=== PATIENT | female | born 1980 | race Caucasian/White ===

== ENCOUNTER 2020-06-06 08:47 | Emergency (ER) | payer OTHER, SELFPAY ==
[2020-06-06 09:01] VITALS: BMI 34.7
[2020-06-06 09:04] VITALS: BP 117/76; PULSE 72; RESP 16; TEMP 36.9; O2SAT 98
--- NOTE | 2020-06-06 09:19 | XR_ITS ---
WS: [id number] RIGHT SHOULDER: 3 VIEW(S) TECHNIQUE: Internal and external rotation with Y view. HISTORY: trauma/fall COMPARISON: None available. No fracture or dislocation or soft tissue abnormality. Glenohumeral and AC joints are unremarkable. XR/XR shoulder RT min 2V* [id number] IMPRESSION: Normal RIGHT shoulder.
--- NOTE | 2020-06-06 09:20 | ED_ITS ---
HPI - Fall General: Chief Complaint: Fall Stated Complaint: FALL/[facility] Time Seen by Provider: 06/06/20 08:49 Source: patient Mode of arrival: ambulatory Limitations: no limitations History of Present Illness: HPI Narrative: Patient is a 40-year-old female who presents to ED today after a trip and fall incident that occurred. Patient states she is an [facility] employee and fell due to a hole near the sidewalk. This is a workers comp visit. Patient states when she fell she landed with her right arm outstretched and jammed her right shoulder. She has noticed popping since the event. She has no other complaints at this time other than some mild soreness. She has been ambulatory since the event. She denies striking her head, LOC, neck or back pain. Associated symptoms-after fall: Denies abdominal pain, chest pain, headache(s) or neck pain Review of Systems Eyes: Denies: change in vision, blurry vision, floaters or seeing flashes Card: Denies: chest pain Resp: Denies: dyspnea GI: Denies: abdominal pain Musc: Reports: joint pain (R shoulder); Denies: neck pain, back pain, extremity pain, extremity swelling or joint swelling Neuro: Denies: headache(s), numbness in extremities, weakness in extremities or sensory changes [facility] ED Female Reproductive History: Date of last menstrual period: 05/28/20 Physical Exam Const: COMMON NORMALS: no acute distress, average body habitus, patient oriented x3, no limitations, healthy appearing, alert and well nourished HENMT: COMMON NORMALS: normocephalic and atraumatic HEAD & SCALP: normocephalic and atraumatic Neck/C-Spine: COMMON NORMALS: full ROM GENERAL: Yes normal visual inspection CERVICAL SPINE: No pain with cervical ROM, No Cervical spine tenderness and No Paracervical muscle tenderness Chest: COMMONS NORMALS: normal inspection of the chest and normal palpation of entire chest wall Back/Pelvis: COMMON NORMALS: thoracic and lumbar spine normal to inspection, no thoracic nor lumbar tenderness and thoraco-lumbar ROM normal Extremity: GENERAL: Yes normal exam except as noted RIGHT UPPER EXTREMITY: Yes shoulder joint (TTP anterior glenohumeral/AC joint; full but painful ROM) Right shoulder: Yes Right shoulder joint neurovascular exam (normal) Neuro: COMMON NORMALS: patient oriented x3, moves all extremities, no focal motor deficits, no sensory deficits noted and gait normal SENSORIUM/ORIENTATION: Yes alert Skin: COMMON NORMALS: no rashes or lesions noted GENERAL SKIN EXAM: no rashes or lesions noted Course Vital Signs: Vital signs: Vital Signs Temperature 98.4 F 06/06/20 09:04 Pulse Rate 72 06/06/20 09:04 Respiratory Rate 16 06/06/20 09:04 Blood Pressure 117/76 06/06/20 09:04 Pulse Oximetry 98 06/06/20 09:04 MDM - Fall MDM Narrative: Medical decision making narrative: pt will be sent for drug/etoh screening and will followup with workers comp Imaging Data^: XR R shoulder: Radiologist's impression: [place] [address] XRay Report Signed Patient: Delmis Ahumada Unit #: [id number] : 1980 Age/Sex: 40 / F ADM Date: 06/06/20 Loc: ER Room/Bed: Attending Dr: Ordering Provider/Ordering MD: Mary Mcnair Date of Service: 06/06/20 Procedure(s): XR shoulder RT min 2V* [id number] Accession Number(s): [id number] Report Number: [id number] WS: [id number] RIGHT SHOULDER: 3 VIEW(S) TECHNIQUE: Internal and external rotation with Y view. HISTORY: trauma/fall COMPARISON: None available. No fracture or dislocation or soft tissue abnormality. Glenohumeral and AC joints are unremarkable. XR/XR shoulder RT min 2V* [id number] IMPRESSION: Normal RIGHT shoulder. Dictated By: Aury Ivy DO Signed By: Aury Ivy DO Signed Date/Time: 06/06/20945 DD/ 1 Discharge Plan Discharge Patient Disposition: Home Clinical Impression: Fall on same level from tripping Injury of right shoulder Qualifiers: Encounter type: initial encounter Qualified Code(s): S49.91XA - Unspecified injury of right shoulder and upper arm, initial encounter Condition: Stable Prescriptions: No Action Richelle 24 Hour 1 tab PO DAILY RF: 0 famotidine 20 mg Tablet 20 mg PO DAILY RF: 0 Discharge Orders: Discharge Order (Routine); Ordered 06/06/20 Ordered By: Mary Mcnair Referrals: Twin Le MD [Primary Care Provider] - Patient Instructions: Shoulder Sprain (ED) Activity Restrictions/Additional Instructions: As discussed head straight to the [facility]/occupational facility for drug and alcohol screening. You have been given discharge instructions on when/where to follow-up with Worker's Comp. Coding Level of Care Code ED Medicare Specialist for Edwin Tsai
[2020-06-06 10:18] VITALS: BP 115/72; PULSE 69; RESP 18; O2SAT 98
== END 2020-06-06 10:30 | disposition home or self-care (01) ==
PROVIDERS: Emergency Provider Physician Assistant; Family Provider Family Medicine; PCP Family Medicine
DX: S49.91XA Unspecified injury of right shoulder and upper arm, initial encounter (principal); W01.0XXA Fall on same level from slipping, tripping and stumbling without subsequent striking against object, initial encounter
CPT/HCPCS: 12345; 73030; 99281; 99283

== ENCOUNTER 2020-07-04 15:03 | Outpatient (CLI) | payer OTHER, SELFPAY ==
--- NOTE | 2020-07-04 15:13 | MR_ITS ---
WS: [id number] MRI RIGHT SHOULDER NONCONTRAST TECHNIQUE: Sagittal T2, coronal T1, T2 and proton density imaging. Axial gradient PDE imaging. CLINICAL INFORMATION: RIGHT SHOULDER PAIN COMPARISON: None. FINDINGS: Normal AC joint. Small amount of edema at the AC joint. Minimal downsloping of the acromion. Slight s ubacromial spurring. Distal supraspinatus is normal. Normal infraspinatus. Normal teres minor and sub scapularis. No full-thickness rotator cuff tears. Normal biceps tendon in the bicipital groove. Normal biceps labral anchor. Normal glenoid labrum. Bon y glenoid is normal in appearance. Normal visualized soft tissues. MR/MR shoulder RT wo con* [id number] IMPRESSION: 1. Mild degenerative arthritis at the AC joint with mild edema. 2. Normal rotator cuff. No evidence of rotator cuff tear. 3. Normal biceps tendon in the bicipital groove. 4. No other significant findings.
== END 2020-07-04 15:04 | disposition home or self-care (01) ==
LOC: RADWPI 15:08
PROVIDERS: Family Provider Family Medicine; PCP Family Medicine; Visit Provider Family Medicine
DX: M19.011 Primary osteoarthritis, right shoulder (principal); R60.0 Localized edema
CPT/HCPCS: 73221

== ENCOUNTER 2020-07-13 09:27 | Outpatient (RCR) | payer OTHER, SELFPAY | END 2020-07-18 23:59 | disposition home or self-care (01) | LOC: SPT 09:27 | PROVIDERS: PCP Family Medicine; Referring Provider Family Medicine; Visit Provider Family Medicine | DX: S46.911D Strain of unspecified muscle, fascia and tendon at shoulder and upper arm level, right arm, subsequent encounter (principal); X58.XXXD Exposure to other specified factors, subsequent encounter | CPT/HCPCS: 97035; 97110; 97140; 97161 ==

== ENCOUNTER 2020-07-19 06:00 | Outpatient (RCR) | payer OTHER, SELFPAY | END 2020-08-18 23:59 | disposition home or self-care (01) | LOC: SPT 06:00 | PROVIDERS: PCP Family Medicine; Referring Provider Family Medicine; Visit Provider Family Medicine | DX: S46.911D Strain of unspecified muscle, fascia and tendon at shoulder and upper arm level, right arm, subsequent encounter (principal); X58.XXXD Exposure to other specified factors, subsequent encounter | CPT/HCPCS: 97110 ==

== ENCOUNTER 2020-11-22 08:09 | Outpatient (CLI) | payer OTHER, SELFPAY ==
--- NOTE | 2020-11-22 08:45 | MR_ITS ---
WS: [id number] MRI CERVICAL SPINE NONCONTRAST HISTORY: M54.2 - Cervicalgia COMPARISON: None available. Technique: Multiplanar, multisequence noncontrast imaging of the cervical spine. Mild straightening of the normal cervical lordosis. No marrow edema or fracture. Signal within the cervical cord is normal. Visualized posterior fossa is unremarkable. Craniocervical junction, C1 and C2 relationship, odontoid process and soft tissues are normal. C2-C3: Normal. C3-C4: Normal. C4-C5: Normal. C5-C6: Shallow central disc protrusion and small foraminal osteophytes. Very mild encroachment upon t he ventral thecal sac without significant stenosis. C6-C7: Tiny central disc protrusion and mild osteophytic ridging. Very mild encroachment upon the aida tral thecal sac. C7-T1: Normal. Paraspinal soft tissue are normal. MR/MR cervical spin wo con* [id number] IMPRESSION: 1. No significant disc protrusions or stenosis. 2. Shallow central disc protrusions and foraminal osteophytes at C5-6 and C6-7 . Very minimal encroachment upon the ventral thecal sac but no significant sten osis.
== END 2020-11-22 08:10 | disposition home or self-care (01) ==
PROVIDERS: PCP Family Medicine; Visit Provider Orthopaedic Surgery
DX: M50.223 Other cervical disc displacement at C6-C7 level (principal)
CPT/HCPCS: 72141

== ENCOUNTER → 2020-12-31 10:11 | Outpatient (BNVA) | payer OTHER, SELFPAY | PROVIDERS: PCP Family Medicine; Visit Provider Specialist | DX: R20.0 Anesthesia of skin (principal); R20.2 Paresthesia of skin; M54.2 Cervicalgia; S46.211A Strain of muscle, fascia and tendon of other parts of biceps, right arm, initial encounter; Y93.9 Activity, unspecified | CPT/HCPCS: 95886; 95908 ==

== ENCOUNTER 2021-07-23 11:55 | Outpatient (CLI) | payer OTHER, SELFPAY ==
[2021-07-23 13:03] VITALS: BP 110/75; PULSE 48; RESP 18; TEMP 36.8; O2SAT 98; BMI 24.8
[2021-07-23 13:26] VITALS: BP 106/67; PULSE 41; RESP 18; O2SAT 97
[2021-07-23 14:24] VITALS: BP 107/65; PULSE 48; RESP 18; TEMP 36.5; O2SAT 99
== END 2021-07-23 11:56 | disposition home or self-care (01) ==
LOC: OPS 11:57
PROVIDERS: PCP Family Medicine; Visit Provider Family Medicine
DX: U07.1 COVID-19 (principal)
CPT/HCPCS: 96365

== ENCOUNTER 2021-08-27 09:31 | Outpatient (CLI) | payer OTHER, SELFPAY ==
--- NOTE | 2021-08-27 09:39 | MM_ITS ---
WS: [id number] BILATERAL DIGITAL DIAGNOSTIC MAMMOGRAM MAMMOGRAPHY WITH CAD CLINICAL INFORMATION: LT BREAST LUMP 12 OCLOCK HISTORY: Left breast lump. Left pain and soreness. COMPARISON: May 09, 2010 TECHNIQUE: Bilateral CC, MLO, and ML views. FINDINGS: Scattered fibroglandular densities bilaterally. Palpable marker left breast. No definite discrete und erlying parenchymal abnormalities. Ultrasound is pending. Right breast is unremarkable. ULTRASOUND BREAST LEFT TECHNIQUE: Ultrasound left breast focused area of concern. CLINICAL INFORMATION: LT BREAST LUMP 12 OCLOCK COMPARISON: None. FINDINGS: Ultrasound left breast at the 11:00 position 3 cm from the nipple. Dense underlying parenchymal tissu e. No suspicious underlying abnormalities. No cystic or solid lesions. No lesions to target for biops y. Recommend annual screening mammography MM/[place] [id number] IMPRESSION: BI-RADS: 2-Benign FOLLOW UP: 1 Year Follow-up Recommend return to annual screening mammography.
== END 2021-08-27 09:32 | disposition home or self-care (01) ==
LOC: RADSHAW 09:35
PROVIDERS: PCP Family Medicine; Visit Provider Nurse Practitioner Family
DX: N63.25 Unspecified lump in the left breast, overlapping quadrants (principal); N64.4 Mastodynia
CPT/HCPCS: 76642; 77066

== ENCOUNTER 2022-09-24 14:19 | Outpatient (CLI) | payer OTHER, SELFPAY ==
--- NOTE | 2022-09-24 14:24 | MM_ITS ---
WS: [id number] BILATERAL 3D TOMOSYNTHESIS DIGITAL SCREENING MAMMOGRAPHY WITH CAD CLINICAL INFORMATION: SCREENING HISTORY: Screening mammogram. No current complaints. COMPARISON: August 27, 2021 TECHNIQUE: Bilateral CC and MLO views. FINDINGS: The breasts are composed of heterogeneous fibroglandular density tissue, which can limit the detectio n of small underlying mass lesions. Increasing area of architectural distortion upper outer quadrant LEFT breast anterior depth. Recommend further evaluation with diagnostic mammography spot compression views and ultrasound. RIGHT breast is unremarkable and unchanged. IMPRESSION: MM/[place] [id number] BI-RADS: 0-Incomplete: Need additional imaging evaluation FOLLOW UP: Need Additional Imaging Recommend LEFT breast diagnostic mammography with spot compression views and ul trasound in further evaluation.
== END 2022-09-24 14:20 | disposition home or self-care (01) ==
LOC: RAD 14:20
PROVIDERS: PCP Family Medicine; Visit Provider Family Medicine
DX: Z12.31 Encounter for screening mammogram for malignant neoplasm of breast (principal)
CPT/HCPCS: 77063; 77067

== ENCOUNTER 2022-10-24 09:53 | Outpatient (CLI) | payer OTHER, SELFPAY ==
--- NOTE | 2022-10-24 10:07 | MM_ITS ---
WS: [id number] LEFT 3D TOMOSYNTHESIS DIGITAL MAMMOGRAPHY WITH CAD CLINICAL INFORMATION: ABNORMAL MAMMO HISTORY: Additional views COMPARISON: September 24, 2022 TECHNIQUE: 3 views of the left breast were obtained. FINDINGS: The left breast is composed of heterogeneous fibroglandular density tissue, which can limit the detec tion of small underlying mass lesions. Stable area of architectural distortion upper outer LEFT breas t. There may be some associated mineralization in this area. Ultrasound described below. ULTRASOUND BREAST LEFT TECHNIQUE: Ultrasound left breast focused area of concern. CLINICAL INFORMATION: ABNORMAL MAMMO COMPARISON: None. FINDINGS: Ultrasound upper outer quadrant LEFT breast. Normal-appearing 7 mm lymph node with normal fatty hilum at the 2:00 position 4 cm from the nipple. Normal underlying parenchymal tissue in the upper outer q uadrant. No suspicious lesions. No cystic or solid lesions to target for biopsy. Recommend return to annual screening mammography. MM/[place] [id number] IMPRESSION: BI-RADS: 2-Benign FOLLOW UP: 1 Year Follow-up Recommend return to annual screening mammography.
== END 2022-10-24 09:54 | disposition home or self-care (01) ==
LOC: RAD 09:54
PROVIDERS: PCP Family Medicine; Visit Provider Family Medicine
DX: R92.8 Other abnormal and inconclusive findings on diagnostic imaging of breast (principal)
CPT/HCPCS: 76642; 77061; G0279

== ENCOUNTER 2023-11-13 07:54 | Outpatient (CLI) | payer OTHER, SELFPAY ==
--- NOTE | 2023-11-13 08:02 | MM_ITS ---
WS: [id number] BILATERAL SCREENING DIGITAL TOMOSYNTHESIS MAMMOGRAM WITH CAD HISTORY: SCREEN COMPARISON: 10/24/2022 and 09/24/2022 Bilateral CC and MLO views with tomosynthesis and synthetic mammography submitted. Computer aided det ection analyzed. Breast composition: The breasts are heterogeneously dense, which may obscure small masses. No suspici ous masses, microcalcifications or architectural distortion. IMPRESSION: MM/[place] [id number] BI-RADS: 1-Negative FOLLOW UP: 1 Year Follow-up
== END 2023-11-13 07:55 | disposition home or self-care (01) ==
LOC: RAD 07:55
PROVIDERS: Visit Provider Family Medicine
DX: Z12.31 Encounter for screening mammogram for malignant neoplasm of breast (principal); R92.333 Mammographic heterogeneous density, bilateral breasts
CPT/HCPCS: 77063; 77067

== ENCOUNTER 2024-11-23 07:52 | Outpatient (CLI) | payer OTHER, SELFPAY ==
--- NOTE | 2024-11-23 07:58 | MM_ITS ---
WS: [id number] BILATERAL SCREENING DIGITAL TOMOSYNTHESIS MAMMOGRAM WITH CAD HISTORY: SCREENING COMPARISON: 09/24/2022, 10/24/2022, 11/13/2023 Bilateral CC and MLO views with tomosynthesis and synthetic mammography submitted. Computer aided detection analyzed. Breast composition: The breasts are heterogeneously dense, which may obscure small masses. Reidentified is an area of architectural distortion in the upper outer quadrant of the LEFT breast is stable since 2021. There is no associated mass. No progression of this distortion. The remaining breasts are negative. MM/MM scr tomosynthesis [id number] IMPRESSION: BI-RADS: 2 - Benign FOLLOW UP: 1 Year Follow-up
== END 2024-11-23 07:53 | disposition home or self-care (01) ==
LOC: RAD 07:53
PROVIDERS: PCP Family Medicine; Visit Provider Family Medicine
DX: Z12.31 Encounter for screening mammogram for malignant neoplasm of breast (principal); R92.333 Mammographic heterogeneous density, bilateral breasts; N63.21 Unspecified lump in the left breast, upper outer quadrant
CPT/HCPCS: 77063; 77067

== ENCOUNTER → 2024-12-20 15:33 | Outpatient (BNVA) | payer OTHER, SELFPAY | PROVIDERS: PCP Family Medicine; Visit Provider Family Medicine | DX: Z12.4 Encounter for screening for malignant neoplasm of cervix (principal); N92.6 Irregular menstruation, unspecified | CPT/HCPCS: 84443; 87624 ==

== ENCOUNTER 2025-02-02 09:02 | Outpatient (CLI) | payer OTHER, SELFPAY ==
--- NOTE | 2025-02-02 09:11 | XR_ITS ---
WS: [id number] Right hand, 3 views, 02/02/2025 Clinical Data: R middle finger PIP joint--foreign body Comparison: None. Findings: No fractures or dislocations are seen. The soft tissues are unremarkable. The joint spaces are normal No radiopaque foreign body is seen. XR/XR hand RT min 3V* [id number] Impression: Negative right hand.
== END 2025-02-02 09:03 | disposition home or self-care (01) ==
PROVIDERS: PCP Family Medicine; Visit Provider Family Medicine
DX: M79.646 Pain in unspecified finger(s) (principal)
CPT/HCPCS: 73130

== ENCOUNTER 2025-02-10 07:47 | Outpatient (CLI) | payer OTHER, SELFPAY ==
--- NOTE | 2025-02-10 08:15 | US_ITS ---
WS: [id number] US pelvic complete* [id number] HISTORY: irregular periods; LLQ pain COMPARISON: 02/15/2007 Uterus: 7.9 cm x 4.2 cm x 3.8 cm. Normal size uterus. Fibroid along the anterior surface of the uterus measures 1.3 x 1.5 x 1.1 cm and encroaches into the urinary bladder. There are additional very subtle scattered hypoechoic areas within the myometrium which are poorly defined seen only on transvaginal imaging which are probably additional fibroids. Endometrium: 0.4 cm. No mass or increased vascularity. Right ovary: 1.2 cm x 1.1 cm x 1.1 cm. Normal size and vascularity, no cystic or solid masses. Left ovary: 2.8 cm x 1.8 cm x 2.1 cm. Normal size ovary with a small follicle measuring 1.8 x 2.2 x 1.9 cm. No solid mass. No free fluid in the cul-de-sac. US/US pelvic complete* [id number] IMPRESSION: 1. Fibroid uterus. Largest fibroid exophytic from the anterior myometrium encr oaching into the bladder measures 1.3 x 1.5 x 1.1 cm. 2. Negative endometrium.
== END 2025-02-10 07:48 | disposition home or self-care (01) ==
LOC: RAD 07:49
PROVIDERS: PCP Family Medicine; Visit Provider Family Medicine
DX: N92.6 Irregular menstruation, unspecified (principal); R10.32 Left lower quadrant pain; D25.9 Leiomyoma of uterus, unspecified
CPT/HCPCS: 76856